=== PATIENT | female | born 1965 | race Caucasian/White ===

== ENCOUNTER 2019-11-17 09:30 | Outpatient (CLI) | payer BC, SELFPAY ==
--- NOTE | 2019-11-17 09:33 | MM_ITS ---
WS: [id number] BILATERAL DIGITAL SCREENING MAMMOGRAM WITH CAD CLINICAL INFORMATION: SCREENING HISTORY: Screening mammogram. No current complaints. COMPARISON: September 17, 2018 TECHNIQUE: Bilateral CC and MLO views. FINDINGS: Fatty-replaced breasts bilaterally. Stable intramammary lymph nodes right breast. No suspicious focal mass, asymmetry, calcifications, or architectural distortion. No evidence of malignancy. MM/[id number] IMPRESSION: BI-RADS: 2-Benign FOLLOW UP: 1 Year Follow-up Recommend return to annual screening mammography.
== END 2019-11-17 09:31 | disposition home or self-care (01) ==
LOC: RADSHAW 09:30
PROVIDERS: Family Provider Family Medicine; PCP Family Medicine; Visit Provider Family Medicine
DX: Z12.31 Encounter for screening mammogram for malignant neoplasm of breast (principal)
CPT/HCPCS: 73600; 73630; 77067; 77077

== ENCOUNTER 2020-11-18 14:37 | Outpatient (CLI) | payer BC, SELFPAY ==
--- NOTE | 2020-11-18 14:41 | MM_ITS ---
WS: [id number] BILATERAL DIGITAL SCREENING MAMMOGRAM WITH CAD CLINICAL INFORMATION: SCREENING HISTORY: Screening mammogram. No current complaints. COMPARISON: November 17, 2019 TECHNIQUE: Bilateral CC and MLO views. FINDINGS: Fatty-replaced breasts bilaterally. No suspicious focal mass, asymmetry, calcifications, or enterprise cloud architect ural distortion. No evidence of malignancy. A few intramammary lymph nodes. MM/[place] [id number] IMPRESSION: BI-RADS: 2-Benign FOLLOW UP: 1 Year Follow-up Recommend return to annual screening mammography.
== END 2020-11-18 14:38 | disposition home or self-care (01) ==
LOC: RADSHAW 14:38
PROVIDERS: PCP Family Medicine; Visit Provider Family Medicine
DX: Z12.31 Encounter for screening mammogram for malignant neoplasm of breast (principal)
CPT/HCPCS: 77067

== ENCOUNTER 2021-07-22 08:09 | Outpatient (CLI) | payer BC, SELFPAY ==
[2021-07-22 08:30] VITALS: BP 153/99; PULSE 63; RESP 20; TEMP 36.6; O2SAT 98; BMI 47.0
[2021-07-22 09:00] VITALS: BP 140/81; PULSE 68; RESP 18; O2SAT 96
[2021-07-22 10:42] VITALS: BP 141/84; PULSE 56; RESP 16; TEMP 36.6
--- NOTE | 2021-07-27 14:37 | PC.SOCIAL ---
antibody infusion follow up call symptoms prior to infusion: sinus headache, loss of taste and smell, body aches feels that symptoms have improved, headache is better. continues to have slight cough.
--- NOTE | 2022-02-09 16:55 | XR_ITS ---
WS: [id number] Exam: XR lumbar spine 2-3V* [id number] Date/Time of Exam: 02/09/2022 5:02 PM Reason For Exam: LOW BACK PAIN No acute fracture. Grade 1 degenerative spondylolisthesis of L4 on L5 with about 7 mm forward movemen t of L4. Degenerative disc changes from L3 to S1. Mild spondylosis. Facet arthropathy at all levels m ost marked at L4-5 and L5-S1. Degenerative vacuum disc at L5-S1.
== END 2021-07-22 08:10 | disposition home or self-care (01) ==
LOC: OPS 08:15
PROVIDERS: PCP Family Medicine; Visit Provider Nurse Practitioner
DX: U07.1 COVID-19 (principal)
CPT/HCPCS: 96365

== ENCOUNTER 2022-02-09 16:22 | Outpatient (CLI) | payer BC, SELFPAY ==
--- NOTE | 2022-02-09 | XR_ITS ---
WS: [id number] Exam: XR lumbar spine 2-3V* [id number] Date/Time of Exam: 02/09/2022 5:02 PM Reason For Exam: LOW BACK PAIN No acute fracture. Grade 1 degenerative spondylolisthesis of L4 on L5 with about 7 mm forward movemen t of L4. Degenerative disc changes from L3 to S1. Mild spondylosis. Facet arthropathy at all levels m ost marked at L4-5 and L5-S1. Degenerative vacuum disc at L5-S1. XR/XR lumbar spine 2-3V* [id number] IMPRESSION: 1. Degenerative spondylolisthesis of L4 on L5 with about 7 mm forward movement of L4. 2. Degenerative disc changes, facet arthropathy and spondylosis. 3. No acute fracture.
== END 2022-02-09 16:23 | disposition home or self-care (01) ==
PROVIDERS: PCP Family Medicine; Visit Provider Family Medicine
DX: M54.50 Low back pain, unspecified (principal); M43.10 Spondylolisthesis, site unspecified; M47.816 Spondylosis without myelopathy or radiculopathy, lumbar region
CPT/HCPCS: 72100

== ENCOUNTER 2022-12-25 11:45 | Outpatient (CLI) | payer BC, SELFPAY ==
--- NOTE | 2022-12-25 12:00 | MM_ITS ---
WS: [id number] BILATERAL 3D TOMOSYNTHESIS DIGITAL SCREENING MAMMOGRAPHY WITH CAD CLINICAL INFORMATION: SCREENING HISTORY: Screening mammogram. No current complaints. COMPARISON: November 18, 2020 TECHNIQUE: Bilateral CC and MLO views. FINDINGS: Scattered fibroglandular densities bilaterally. No suspicious focal mass, asymmetry, calcifications, or architectural distortion. No evidence of malignancy. A few incidental punctate calcifications. Sta ble intramammary lymph nodes. MM/[place] [id number] IMPRESSION: BI-RADS: 2-Benign FOLLOW UP: 1 Year Follow-up Recommend return to annual screening mammography.
== END 2022-12-25 11:46 | disposition home or self-care (01) ==
PROVIDERS: PCP Family Medicine; Visit Provider Family Medicine
DX: Z12.31 Encounter for screening mammogram for malignant neoplasm of breast (principal)
CPT/HCPCS: 77063; 77067